=== PATIENT | female | born 1975 | race African-American/Black ===

== ENCOUNTER 2020-09-08 17:48 | Emergency (ER) | payer OTHER ==
[~2020-09-08] VITALS: Ht 167.6 cm; Wt 91.3 kg
--- NOTE | 2020-09-08 18:39 | PHYS DOC ---
Past History Past Medical History: Other Additional Past Medical Histor: Chronic pack pain (DALE LAND APRN) Past Surgical History: Tubal ligation (DALE LAND APRN) Alcohol Use: None (DALE LAND APRN) Adult General Chief Complaint Chief Complaint: BACK PAIN OR INJURY [facility] Patient is a 44-year-old female patient presents with left lower back pain, left calf pain. Patient states she has a history of sciatica, has had sciatica for many years due to her scoliosis. States she had a flareup proximally 3 weeks ago, she had gone to urgent care, was given a 1 week steroid dose which helped her be able to walk, however she states she continues to have discomfort. She had followed up with her primary care Jossie was given 800 mL ibuprofen and tizanidine, which she says only helps her sleep. States she is does not feel right. States she continues to have this discomfort. States she is concerned she may have a blood clot in her left leg as this is abnormal for her. States she had been immobile for a week while her back was at its worse. Denies any history of blood clots, denies any control use, denies any . denies any trauma, denies any recent falls. (DALE LAND APRN) Review of Systems Review of Systems Constitutional: Denies fever or chills [] Eyes: Denies change in visual acuity, redness, or eye pain [] HENT: Denies nasal congestion or sore throat [] Respiratory: Denies cough or shortness of breath [] Cardiovascular: No additional information not addressed in HPI [] GI: Denies abdominal pain, nausea, vomiting, bloody stools or diarrhea [] : Denies dysuria or hematuria [] Musculoskeletal: Denie joint pain [] states shooting pain to left back, left upper leg. States sharp pain to her left lower leg. Integument: Denies rash or skin lesions [] Neurologic: Denies headache, focal weakness or sensory changes [] Endocrine: Denies polyuria or polydipsia [] All other systems were reviewed and found to be within normal limits, except as documented in this note. (DALE LAND APRN) Allergies Allergies Allergies Coded Allergies Type Severity Reaction Last Updated Verified amitriptyline Allergy Unknown 09/08/20 Yes hydromorphone Allergy Unknown 09/08/20 Yes (DALE LAND APRN) Physical Exam Physical Exam Constitutional: Well developed, well nourished, no acute distress, non-toxic appearance. [] HENT: Normocephalic, atraumatic, bilateral external ears normal, oropharynx moist, no oral exudates, nose normal. [] Eyes: PERRLA, EOMI, conjunctiva normal, no discharge. [] Neck: Normal range of motion, no tenderness, supple, no stridor. [] Cardiovascular:Heart rate regular rhythm, no murmur [] Lungs & Thorax: Bilateral breath sounds clear to auscultation [] Abdomen: Bowel sounds normal, soft, no tenderness, no masses, no pulsatile masses. [] Skin: Warm, dry, no erythema, no rash. [] Back: no CVA tenderness. Tenderness to left back, shooting down into left upper leg. [] Extremities: No tenderness, no cyanosis, no clubbing, ROM intact, no edema. [] No swelling noted to left lower leg, positive Homans sign, no cords palpable, pedal pulse normal, no warmth, no erythema noted. Neurologic: Alert and oriented X 3, normal motor function, normal sensory function, no focal deficits noted. [] Psychologic: Affect normal, judgement normal, mood normal. [] (DALE LAND APRN) Current Patient Data Vital Signs Vital Signs Date Time Temp Pulse Resp B/P (MAP) Pulse Ox O2 Delivery O2 Flow Rate FiO2 09/08/20 17:58 97.9 83 16 158/102 (120) 98 Room Air (DALE LAND APRN) EKG EKG [] (DALE LAND APRN) Radiology/Procedures Radiology/Procedures [] (DALE LAND APRN) Heart Score Risk Factors: Risk Factors: DM, Current or recent (<one month) smoker, HTN, HLP, family history of CAD, obesity. Risk Scores: Risk Factors: DM, Current or recent (<one month) smoker, HTN, HLP, family history of CAD, obesity. (DALE LAND APRN) Course & Med Decision Making Course & Med Decision Making Pertinent Labs and Imaging studies reviewed. (See chart for details) [] Reviewed K tracks without any narcotic feels, patient does report she drove herself today. She is more concerned over potential for blood clots., Wells score +2 Reviewed labs with patient, without abnormal d dimer or abnormal urinalysis. Offered Rx for pain medications, patient reports she doesn't want any and will just take what she has already. She does report her Rx of Ibuprofen 800 mg says take Q2-3 hours. Advise patient to dose TID, Q 8 HR and not Q2 hr. She is agreeable to steroid dosing at this time and will follow up on Jossie again and is ready for discharge. (DALE LAND APRN) Dragon Disclaimer Dragon Disclaimer This electronic medical record was generated, in whole or in part, using a voice recognition dictation system. (DALE LAND APRN) Departure Departure: Impression: Primary Impression: Sciatic leg pain Disposition: 01 DC HOME SELF CARE/HOMELESS Condition: STABLE Referrals: ROSS PATTON DO (PCP) Patient Instructions: Sciatica with [facility] Additional Instructions: As discussed take the Ibuprofen 800 mg tabs you were previously prescribed every 8 hours, regulary, for the next 7 days to help manage the inflammation and discomfort. You were given a steroid shot here today to help with the inflammation. Follow up with Jossie in a week to see if you are improving. DALE LAND APRN Sep 08, 2020 18:39 ANTONELLA HAIDER DO Sep 08, 2020 21:16
[2020-09-08 19:13] LABS: BACTERIA,URINE FEW /HPF (0-FEW); BILIRUBIN,URINE NEG (NEG); CLARITY,URINE CLEAR; COLOR,URINE YELLOW; GLUCOSE,URINE NEG (NEG); NITRITE,URINE NEG (NEG); UROBILINOGEN,URINE 0.2 mg/dL (0.2 mg/dL)
[2020-09-08 19:14] LABS: SQUAMOUS EPITHELIAL CELL,UR MOD /LPF
[2020-09-08] MEDS ORDERED: methylPREDNISolone ACETATE 80 MG/ML VIAL. ONE (19:27)
[2020-09-08] MEDS ORDERED: methylPREDNISolone ACETATE 80 MG/ML VIAL. IM ONE (19:30)
[2020-09-08 19:34] VITALS: BP 143/78
== END 2020-09-08 19:33 | disposition home or self-care (01) ==
LOC: ER 17:48
DX: M54.42 Lumbago with sciatica, left side (principal); M79.662 Pain in left lower leg; G89.29 Other chronic pain; Z98.51 Tubal ligation status; Z88.5 Allergy status to narcotic agent; Z88.8 Allergy status to other drugs, medicaments and biological substances
CPT/HCPCS: 36415; 81001; 85379; 96372; 99283; J1040

== ENCOUNTER → 2020-10-23 | Day surgery (SDC) | payer MEDICARE, OTHER ==
[~2020-10-23] MED LIST: BUPIVACAINE MPF 0.25% 10 ML VIAL. ONE; IOHEXOL 300 MG/ML 50 ML VIAL. ONE; LIDOCAINE 1% PF 30 ML VIAL. ONE; methylPREDNISolone ACETATE 40 MG/ML VIAL. ONE
[2020-10-23 10:21] VITALS: BP 146/94
== END | disposition home or self-care (01) ==
LOC: SURG 10:00
PROVIDERS: ATTEND Anesthesiology
DX: M46.1 Sacroiliitis, not elsewhere classified (principal); F32.9 Major depressive disorder, single episode, unspecified; G43.909 Migraine, unspecified, not intractable, without status migrainosus; M54.16 Radiculopathy, lumbar region; M53.3 Sacrococcygeal disorders, not elsewhere classified; Z80.8 Family history of malignant neoplasm of other organs or systems; Z83.3 Family history of diabetes mellitus; Z79.899 Other long term (current) drug therapy; Z88.8 Allergy status to other drugs, medicaments and biological substances; Z88.5 Allergy status to narcotic agent; Z98.51 Tubal ligation status
CPT/HCPCS: 27096; J1030; J3490; Q9967